=== PATIENT | female | born 1985 | race African-American/Black ===

== ENCOUNTER 2017-05-09 21:27 | Emergency (ER) | payer BC, MEDICAID ==
--- NOTE | 2017-05-09 23:35 | ER Document Report ---
ED Breast Problem - General Chief Complaint: Breast Problem Stated Complaint: RIGHT NIPPLE PAIN Time Seen by Provider: 05/09/17 23:34 Mode of Arrival: Ambulatory Information source: Patient TRAVEL OUTSIDE OF THE [place] IN LAST 30 DAYS: No - HPI Patient complains to provider of: Redness, Swelling, Tenderness Onset: Other - 2 DAYS Onset/Duration: Gradual Quality of pain: Burning, Other - TENDER Severity: Moderate Context: Other - ON ACCUTANE, PER SCALE EXPERT Discharge description: None Associated Symptoms: None Similar symptoms previously: No Recently seen / treated by doctor: Yes - DERM, ROUTINE - Related Data Allergies/Adverse Reactions: Penicillins Allergy (Verified 05/09/17 23:04) Past Medical History - General Information source: Patient - Social History Smoking Status: Never Smoker Chew tobacco use (# tins/day): No Frequency of alcohol use: None Drug Abuse: None Lives with: Family Family History: Reviewed & Not Pertinent Patient has suicidal ideation: No Patient has homicidal ideation: No - Past Medical History Cardiac Medical History: Reports: None Pulmonary Medical History: Reports: None EENT Medical History: Reports: None Neurological Medical History: Reports: None Endocrine Medical History: Reports: None Renal/ Medical History: Reports: None. Denies: Hx Peritoneal Dialysis Malignancy Medical History: Reports: None GI Medical History: Reports: None Musculoskeltal Medical History: Reports None Skin Medical History: Reports Other - SEVERE ACNE VULGARIS Psychiatric Medical History: Reports: None Surgical Hx: Negative Review of Systems - Review of Systems Constitutional: No symptoms reported. denies: Fever EENT: No symptoms reported Cardiovascular: No symptoms reported Respiratory: No symptoms reported Gastrointestinal: No symptoms reported Genitourinary: No symptoms reported Female Genitourinary: denies: Skin: See HPI Physical Exam - Vital signs Vitals: Temp Pulse Resp BP Pulse Ox 98.5 F 97 16 139/80 H 99 05/09/17 23:02 05/09/17 23:02 05/09/17 23:02 05/09/17 23:02 05/09/17 23:02 Interpretation: Normal. No: Tachycardic, Tachypneic, Febrile - General General appearance: Appears well, Alert In distress: None - HEENT Head: Normocephalic Eyes: Normal Conjunctiva: Normal Ears: Normal Nasal: Normal Mouth/Lips: Other - LIPS DRY - Respiratory Respiratory status: No respiratory distress - Cardiovascular Rhythm: Regular - Extremities General upper extremity: Normal inspection General lower extremity: Normal inspection - Neurological Neuro grossly intact: Yes Cognition: Normal Orientation: AAOx4 - Psychological Associated symptoms: Normal affect, Normal mood - Skin Skin Temperature: Warm Skin Moisture: Dry Skin Color: Normal Skin Turgor: Elastic Notes: RIGHT NIPPLE ERYTHEMATOUS, EDEMATOUS, AND TENDER, MORE MEDIALLY. NO EVIDENT CELLULITIS OR DRAINAGE. Course - Vital Signs Vital signs: Temp Pulse Resp BP Pulse Ox 98.5 F 96 18 132/71 H 98 05/09/17 23:02 05/09/17 23:24 05/09/17 23:24 05/09/17 23:24 05/09/17 23:24 Discharge - Discharge Clinical Impression: Nipple dermatitis Condition: Stable Disposition: HOME, SELF-CARE Additional Instructions: USE MOISTURIZING CREAM ON DRY AREAS TO PREVENT DRYNESS. ALSO, KEEP NIPPLE COVERED AND PROTECTED WITH A LARGE BAN-AID OR SIMILAR PROTECTIVE COVERING. FOLLOW UP WITH YOUR SCALE EXPERT IF NOT IMPROVING IN 24-48 HOURS.
[2017-05-10] MEDS ORDERED: LIDOCAINE 2% VISCOUS SOLN 20 ML UDCUP PO ONE (00:39)
[2017-05-10 01:18] VITALS: BP 131/84
== END 2017-05-10 01:17 | disposition home or self-care (01) ==
LOC: ER 21:27
DX: L30.9 Dermatitis, unspecified (principal); N64.4 Mastodynia
CPT/HCPCS: 99283; J3490

== ENCOUNTER 2018-12-20 05:31 | Day surgery (SDC) | payer BC, MEDICAID ==
[2018-12-18 10:51] LABS: HEMATOCRIT 34.6 % (36.0-47.0); HEMOGLOBIN 11.3 g/dL (12.0-15.5); MEAN CORPUSCULAR HEMOGLOBIN 27.7 pg (27.0-33.4); MEAN CORPUSCULAR HGB CONC 32.6 g/dL (32.0-36.0); MEAN CORPUSCULAR VOLUME 85 fl (80-97); PLATELET COUNT 301 10^3/uL (150-450); RED BLOOD COUNT 4.07 10^6/uL (3.72-5.28)
[2018-12-18 10:59] LABS: APPEARANCE,URINE CLOUDY; BILIRUBIN,URINE NEGATIVE (NEGATIVE); COLOR,URINE YELLOW; GLUCOSE, URINE NEGATIVE (NEGATIVE); KETONES,URINE NEGATIVE (NEGATIVE); LEUKOCYTE ESTERASE,URINE MODERATE (NEGATIVE); NITRITE,URINE NEGATIVE (NEGATIVE); PROTEIN,URINE NEGATIVE (NEGATIVE); URINE SPECIFIC GRAVITY 1.026
[2018-12-18 11:17] LABS: ANION GAP 11 (5-19); BLOOD UREA NITROGEN 11 mg/dL (7-20); CALCIUM 9.5 mg/dL (8.4-10.2); CARBON DIOXIDE 25 mmol/L (22-30); CHLORIDE 104 mmol/L (98-107); GLUCOSE 91 mg/dL (75-110); POTASSIUM 4.2 mmol/L (3.6-5.0); SODIUM 139.6 mmol/L (137-145)
[~2018-12-20 05:31] MED LIST: CLINDAMYCIN 600 MG/D5W RTU 600 MG/50 ML RTUPB IV ONE; CLINDAMYCIN 600 MG/D5W RTU 600 MG/50 ML RTUPB IV PRN; LACTATED RINGERS 1000 ML IV PRN; LIDOCAINE 0.5% INJ-PF (5 MG/ML) 50 ML SDV SUBCUT PRN
[2018-12-20] MEDS ORDERED: DEXAMETHASONE SOD PHOSPHATE INJ 4 MG/1 ML VIAL ONE (06:58)
[2018-12-20] MEDS ORDERED: MIDAZOLAM 2 MG/2 ML INJ ONE (06:58)
[2018-12-20] MEDS ORDERED: FENTANYL CITRATE INJ/PF 100 MCG/2 ML AMPUL ONE ×2 (06:58→08:31)
[2018-12-20] MEDS ORDERED: ONDANSETRON HCL INJ/PF 4 MG/2 ML SDV ONE (06:58)
[2018-12-20] MEDS ORDERED: PROPOFOL INJ 200 MG/20 ML VIAL IV ONE (06:59)
[2018-12-20] MEDS ORDERED: ACETAMINOPHEN 1,000 MG/100 ML RTUPB IV ONE (06:59)
[2018-12-20] MEDS ORDERED: MEPERIDINE HCL/PF INJ 25 MG/1 ML DISP.SYRIN IV PRN (07:42)
[2018-12-20] MEDS ORDERED: DIPHENHYDRAMINE HCL 50 MG/ML VIAL IV PRN (07:42)
[2018-12-20] MEDS ORDERED: PROMETHAZINE HCL INJ 25 MG/1 ML VIAL IV PRN ×2 (07:42)
[2018-12-20] MEDS ORDERED: FENTANYL CITRATE INJ/PF 100 MCG/2 ML AMPUL IV PRN ×3 (07:42)
[2018-12-20] MEDS ORDERED: MORPHINE SULFATE 10 MG/ML INJ IV PRN (07:42)
[2018-12-20] MEDS ORDERED: SUGAMMADEX SODIUM 200 MG/2 ML SDV IV ONE (07:54)
[2018-12-20] MEDS ORDERED: KETOROLAC TROMETHAMINE INJ/PF 30 MG/1 ML SDV ONE (08:21)
[2018-12-20] MEDS ORDERED: MORPHINE INJ 4 MG DOSE (EDIT ROUTE) INJ PRN (08:30)
[2018-12-20] MEDS ORDERED: MORPHINE INJ 8 MG DOSE IM PRN (08:30)
[2018-12-20] MEDS ORDERED: MORPHINE INJ 6 MG DOSE (EDIT ROUTE) INJ PRN (08:30)
[2018-12-20] MEDS ORDERED: OXYCODONE-ACETAMINOPHEN 5-325 MG TABLET PO PRN (08:30)
[2018-12-20] MEDS ORDERED: PROMETHAZINE HCL INJ 25 MG/1 ML VIAL IM PRN (08:30)
[2018-12-20] MEDS ORDERED: OXYCODONE-ACETAMINOPHEN 5-325 MG TABLET ONE (09:22)
[2018-12-20 09:45] VITALS: BP 144/84
--- NOTE | 2018-12-20 10:13 | OPERATIVE REPORT E ---
Operative Report NAME: MAITE JENKINS : 1985 AGE: 33Y DATE OF SURGERY: 12/20/2018 ROOM: PREOPERATIVE DIAGNOSIS: DESIRES PERMANENT STERILIZATION. POSTOPERATIVE DIAGNOSIS: DESIRES PERMANENT STERILIZATION. PROCEDURE: Open laparoscopic Filshie clip sterilization. SURGEON: AUREA LESLIE M.D. COMPLICATIONS: None. ANESTHESIA: General endotracheal. FINDINGS: That of normal uterus, tubes, ovaries, upper abdomen including gallbladder. INDICATIONS FOR PROCEDURE: The patient desired permanent sterilization. Understands the risk of failure and subsequent , approximately 1 in 150 over 10 years. She understands the risk of bleeding, infection, anesthesia, damage to other organs and tissues. Other options of control have been discussed with the patient. PROCEDURE: Patient taken to the operating room and placed in modified lithotomy position. After adequate anesthesia was ascertained, prepped and draped in usual manner for an open laparoscopy. After surgical timeout performed, a UA performed, bladder drained under sterile technique. Hulka tenaculum placed on the posterior aspect of the retroverted uterus. Surgeon was re-gloved and through an infraumbilical incision in subcutaneous fat and fascia, the peritoneum was entered without difficulty and bluntly. Open origin cannula was placed under direct visualization. The gas was instilled. Approximately 3 fingerbreadths below the symphysis pubis a second incision was made and trocar inserted under direct visualization as well. The Filshie clip applicator was inserted. Survey of the abdomen was completed and clips were placed; one approximately 1 cm from the uterine fundus and mesenteric border of the tube with adequate tube noted within the ends of the clip and the clip extending over the entire width of each tube for a total of 1 clip per tube. Ovaries were noted to be normal. No endometriosis was encountered. Her abdomen was re-visualized. Trocars were removed under direct visualization. Good hemostasis was noted. The fascia was closed on the umbilical side with a 2-0 Vicryl stitch and subcuticular stitch of 3-0 plain gut was placed. At the completion of procedure all sponge, needle, instruments were correct. DICTATING PHYSICIAN: AUREA LESLIE M.D. [id number] PHY#: [id number] ID: [id number] JOB#: [id number] ACCT: [id number] cc:AUREA LESLIE M.D. >
[2018-12-20] MEDS ORDERED: ROCURONIUM BROMIDE INJ 50 MG/5 ML VIAL IV ONE (10:16)
[2018-12-20] MEDS ORDERED: SUCCINYLCHOLINE CHLORIDE INJ 200 MG/10 ML VIAL ONE (10:16)
[2018-12-20] MEDS ORDERED: IBUPROFEN 800 MG TABLET PO SCH (14:00)
== END 2018-12-27 10:12 | disposition home or self-care (01) ==
LOC: OROUT 05:31
PROVIDERS: ATTEND Specialist
DX: Z30.2 Encounter for sterilization (principal); I10 Essential (primary) hypertension; L73.2 Hidradenitis suppurativa; D89.89 Other specified disorders involving the immune mechanism, not elsewhere classified; Z88.0 Allergy status to penicillin; D64.9 Anemia, unspecified; Z79.899 Other long term (current) drug therapy
CPT/HCPCS: 58671; 86900; 86901; 36415; 86850; 85027; 81025; 80048; 81001; J2250; J3490 ×2; J1100; J3010; J1885; J0330; J2405; J2704; J0131; 851